=== PATIENT | female | born 1945 | race Caucasian/White ===

== ENCOUNTER 2017-11-08 04:00 | Emergency (ER) | payer MEDICARE, OTHER ==
[~2017-11-08] VITALS: Ht 165.1 cm; Wt 82.0 kg
[~2017-11-08 04:00] MED LIST: ASPI81 PO; ATOR10 PO; DIAZ2 PO; ESTR0.5T9 PO; NEXI20CA PO
[2017-11-08 04:04] VITALS: BP 208/94; PULSE 75; RESP 18; TEMP 97.7; O2SAT 100
[2017-11-08] MEDS ORDERED: PLAV75TA29 PO (04:18)
[2017-11-08] MEDS ORDERED: ESTR0.5T PO (04:18)
[2017-11-08] MEDS ORDERED: ALUMINUM/MAGNESIUM/SIMETH 30 ML CUP PO ONE (04:45)
[2017-11-08] MEDS ORDERED: PANTOPRAZOLE SODIUM 40 MG VIAL IV PUSH ONE (04:45)
[2017-11-08] MEDS ORDERED: ATROPINE/SCOPOLAM/HYOSCYAM/PB ELIXIR 10 ML CUP PO ONE (04:45)
--- NOTE | 2017-11-08 04:52 | PD ---
HPI Chief Complaint: Chest Pain Time Seen by Provider: 04:31 Travel History International Travel<30 days: No Contact w/Intl Traveler<30days: No Traveled to known affect area: No History of Present Illness HPI 72-year-old female complains of chest pain. Patient states that the pain started about 2 hours prior to arrival. Patient states the pain burning pain substernal pain without radiation. Patient denies palpitation nausea diaphoresis. Patient complained of shortness of breath with the pain. Patient states that the pain woke up from the sleep. Patient had similar episodes of chest pain a year ago. Patient was diagnosis with reflux. Patient denies any history of CAD. Patient has history of hypertension, hyperlipidemia. Patient denies history diabetes. Patient has history of DVT. Patient status post hysterectomy. On a scale of 1-10 the pain is a 10. PFSH Past Medical History High Cholesterol: Yes Deep Vein Thrombosis: Yes GERD: Yes Hypertension: Yes Tetanus Vaccination: < 5 Years Past Surgical History Hysterectomy: Yes (TOTAL IN 1996) Social History Alcohol Use: Yes (RARELY) Tobacco Use: No Substance Use: No Allergies-Medications (Allergen,Severity, Reaction): Coded Allergies: celecoxib (Unverified Allergy, Intermediate, ITCHING, 11/08/17) penicillin G (Unverified Allergy, Intermediate, ITCHING, 11/08/17) hydrocodone (Unverified Allergy, Mild, VOMITING, 11/08/17) Reported Meds & Prescriptions Reported Meds & Active Scripts Active Lomotil (Diphenoxylate-Atropine) 2.5-0.025 Mg Tab 1 Tab PO Q6H PRN Zofran Odt (Ondansetron Odt) 4 Mg Tab 4 Mg SL Q6HR PRN Reported Plavix (Clopidogrel Bisulfate) 75 Mg Tab 75 Mg PO DAILY Estradiol 0.5 Mg Tab 0.5 Mg PO DAILY Valium (Diazepam) 2 Mg Tab 0 Mg PO UNKNOWN DOSE Aspirin 81 Mg Tab 81 Mg PO DAILY Estrace (Estradiol) 0.5 Mg Tab 0 Mg PO UNKNOWN DOSE Nexium (Esomeprazole Magnesium) 20 Mg Cap 0 Mg PO UNKNOWN DOSE Lipitor (Atorvastatin Calcium) 10 Mg Tab 10 Mg PO DAILY Review of Systems General / Constitutional: No: Fever Eyes: No: Visual changes HENT: No: Headaches Cardiovascular: Positive: Chest Pain or Discomfort Respiratory: No: Shortness of Breath Gastrointestinal: No: Abdominal Pain Genitourinary: No: Dysuria Musculoskeletal: No: Pain Skin: No Rash Neurologic: No: Weakness Psychiatric: No: Depression Endocrine: No: Polydipsia Hematologic/Lymphatic: No: Easy Bruising Physical Exam Narrative GENERAL: Well-nourished, well-developed patient. SKIN: Focused skin assessment warm/dry. HEAD: Normocephalic. EYES: No scleral icterus. No injection or drainage. NECK: Supple, trachea midline. No JVD or lymphadenopathy. CARDIOVASCULAR: Regular rate and rhythm without murmurs, gallops, or rubs. RESPIRATORY: Breath sounds equal bilaterally. No accessory muscle use. GASTROINTESTINAL: Abdomen soft, non-tender, nondistended. MUSCULOSKELETAL: No cyanosis, or edema. BACK: Nontender without obvious deformity. No CVA tenderness. Neurologic exam normal. Data Data Last Documented VS Vital Signs Date Time Temp Pulse Resp B/P (MAP) Pulse Ox O2 Delivery O2 Flow Rate FiO2 11/08/17 04:04 97.7 75 18 208/94 (132) 100 Orders Orders Pantoprazole Inj (Protonix Inj) (11/08/17 04:45) Al-Mag Hy-Si 40-40-4 Mg/Ml Liq (Mag-Al P (11/08/17 04:45) Rphqi-Ylagta-Vxezfi-Pb Liq ( Liq (11/08/17 04:45) Electrocardiogram (11/08/17 04:36) Complete Blood Count With Diff (11/08/17 04:36) Comprehensive Metabolic Panel (11/08/17 04:36) Creatine Kinase (Cpk) (11/08/17 04:36) Troponin I (11/08/17 04:36) Prothrombin Time / Inr (Pt) (11/08/17 04:36) Act Partial Throm Time (Ptt) (11/08/17 04:36) Lipase (11/08/17 04:36) Chest, Single Ap (11/08/17 04:36) Iv Access Insert/Monitor (11/08/17 04:36) Ecg Monitoring (11/08/17 04:36) Oximetry (11/08/17 04:36) Metoclopramide Inj (Reglan Inj) (11/08/17 06:00) Diphenhydramine Inj (Benadryl Inj) (11/08/17 06:00) Sodium Chlorid 0.9% 500 Ml Inj (Ns 500 M (11/08/17 06:00) Labs Laboratory Tests Test 11/08/17 04:20 White Blood Count 7.1 TH/MM3 Red Blood Count 4.86 MIL/MM3 Hemoglobin 14.2 GM/DL Hematocrit 41.8 % Mean Corpuscular Volume 85.9 FL Mean Corpuscular Hemoglobin 29.2 PG Mean Corpuscular Hemoglobin Concent 34.0 % Red Cell Distribution Width 13.0 % Platelet Count 281 TH/MM3 Mean Platelet Volume 8.6 FL Neutrophils (%) (Auto) 68.7 % Lymphocytes (%) (Auto) 22.4 % Monocytes (%) (Auto) 7.2 % Eosinophils (%) (Auto) 0.9 % Basophils (%) (Auto) 0.8 % Neutrophils # (Auto) 4.8 TH/MM3 Lymphocytes # (Auto) 1.6 TH/MM3 Monocytes # (Auto) 0.5 TH/MM3 Eosinophils # (Auto) 0.1 TH/MM3 Basophils # (Auto) 0.1 TH/MM3 CBC Comment DIFF FINAL Differential Comment Prothrombin Time 9.7 SEC Prothromb Time International Ratio 1.0 RATIO Activated Partial Thromboplast Time 22.9 SEC Blood Urea Nitrogen 23 MG/DL Creatinine 1.13 MG/DL Random Glucose 98 MG/DL Total Protein 8.9 GM/DL Albumin 3.5 GM/DL Calcium Level 8.7 MG/DL Alkaline Phosphatase 85 U/L Aspartate Amino Transf (AST/SGOT) 43 U/L Alanine Aminotransferase (ALT/SGPT) 17 U/L Total Bilirubin 0.3 MG/DL Sodium Level 140 MEQ/L Potassium Level 4.7 MEQ/L Chloride Level 103 MEQ/L Carbon Dioxide Level 27.4 MEQ/L Anion Gap 10 MEQ/L Estimat Glomerular Filtration Rate 47 ML/MIN Total Creatine Kinase 94 U/L Troponin I LESS THAN 0.02 NG/ML Lipase 175 U/L MDM Medical Decision Making Medical Screen Exam Complete: Yes Emergency Medical Condition: Yes Interpretation(s) 5:39 AM. EKG shows sinus rhythm nonspecific ST-T wave change. CBC within normal limits. CMP with BUN at 23. Creatinine 1.13. GFR 47. Cardiac enzymes are normal. Differential Diagnosis Differential diagnosis including GERD, esophagitis, esophageal spasm, angina, TN , PE, pneumothorax. Narrative Course 72-year-old female with burning pain substernally. History of reflux. Protonix 40 mg IV. Maalox 30 cc p.o. 10 cc p.o. patient started having persistent nausea and intermittent diarrhea. Reglan 10 mg IV. Benadryl 25 mg IV. Lomotil 1 tablet p.o. given. Diagnosis Primary Impression: Gastroenteritis Additional Impressions: GERD (gastroesophageal reflux disease) Qualified Codes: K21.9 - Gastro-esophageal reflux disease without esophagitis Atypical chest pain Patient Instructions: General Instructions Additional Instructions: Clear fluid today and advance diet tomorrow. Take medication as needed for nausea vomiting diarrhea. Follow-up with personal physician. Return if persistent problem or worse. Med/Other Pt SpecificInfo: Prescription(s) given Scripts Diphenoxylate-Atropine (Lomotil) 2.5-0.025 Mg Tab 1 TAB PO Q6H Y for DIARRHEA, #10 TAB 0 Refills Prov: Alex Hawkins MD 11/08/17 Ondansetron Odt (Zofran Odt) 4 Mg Tab 4 MG SL Q6HR Y for Nausea/Vomiting, #10 TAB 0 Refills Prov: Alex Hawkins MD 11/08/17 Disposition: 01 DISCHARGE HOME Condition: Stable Alex Hawkins MD November 08, 2017 04:52
[2017-11-08 04:55] LABS: AUTOMATED NEUTROPHIL # 4.8 TH/MM3 (1.8-7.7); BASOPHIL # 0.1 TH/MM3 (0-0.2); BASOPHIL % 0.8 % (0.0-2.0); EOSINOPHIL # 0.1 TH/MM3 (0-0.4); EOSINOPHIL % 0.9 % (0.0-4.0); HEMATOCRIT 41.8 % (35.0-46.0); HEMOGLOBIN 14.2 GM/DL (11.6-15.3); LYMPH % 22.4 % (9.0-44.0); LYMPHOCYTE # 1.6 TH/MM3 (1.0-4.8); MEAN CELL VOLUME 85.9 FL (80.0-100.0); MEAN CORPUSCULAR HEMOGLOBIN 29.2 PG (27.0-34.0); MEAN PLATELET VOLUME 8.6 FL (7.0-11.0); MONO % 7.2 % (0.0-8.0); MONOCYTE # 0.5 TH/MM3 (0-0.9); NEUT % 68.7 % (16.0-70.0); PLATELET COUNT 281 TH/MM3 (150-450); RED BLOOD COUNT 4.86 MIL/MM3 (4.00-5.30); WHITE BLOOD COUNT 7.1 TH/MM3 (4.0-11.0)
[2017-11-08 05:12] LABS: PROTHROMBIN TIME - PATIENT 9.7 SEC (9.8-11.6)
[2017-11-08 05:17] LABS: ALBUMIN 3.5 GM/DL (3.4-5.0); ALKALINE PHOSPHATASE 85 U/L (45-117); ALT (GPT) 17 U/L (10-53); AST (GOT) 43 U/L (15-37); BICARBONATE 27.4 MEQ/L (21.0-32.0); BLOOD UREA NITROGEN 23 MG/DL (7-18); CALCIUM 8.7 MG/DL (8.5-10.1); CHLORIDE 103 MEQ/L (98-107); CREATININE 1.13 MG/DL (0.50-1.00); GLOMERULAR FILTRATION RATE 47 ML/MIN (>89); GLUCOSE,RANDOM 98 MG/DL (74-106); SODIUM (NA) 140 MEQ/L (136-145); TOTAL BILIRUBIN ADULT 0.3 MG/DL (0.2-1.0); TOTAL PROTEIN 8.9 GM/DL (6.4-8.2); TROPONIN I LESS THAN 0.02 NG/ML (0.02-0.05)
[2017-11-08] MEDS ORDERED: LOMO2.5T PO (05:52)
[2017-11-08] MEDS ORDERED: ZOFR4TAB3 SL (05:52)
[2017-11-08] MEDS ORDERED: METOCLOPRAMIDE HCL 10 MG/2 ML VIAL IV PUSH ONE (06:00)
[2017-11-08] MEDS ORDERED: SODIUM CHLORID 0.9% 500 ML INJ 500 ML IV ONE (06:00)
[2017-11-08] MEDS ORDERED: diphenhydrAMINE HCL 50 MG/ML VIAL IV PUSH ONE (06:00)
--- NOTE | 2017-11-08 06:20 | RADRPT ---
EXAM DATE/TIME: 11/08/2017 04:46 [facility] COMPARISON: No previous studies available for comparison. INDICATIONS : Shortness of breath. MEDICAL HISTORY : Hypertension. SURGICAL HISTORY : None. ENCOUNTER: Initial ACUITY: 1 day PAIN SCORE: 0/10 LOCATION: Bilateral chest FINDINGS: A single view of the chest demonstrates the lungs to be symmetrically aerated without evidence of mas s, infiltrate or effusion. Retrocardiac density may be hiatal hernia. Osseous structures are intact. CONCLUSION: Left paraspinal/retrocardiac density which may be hiatal hernia. Otherwise negative Christiano Amin MD on November 08, 2017 at 6:17 Board Certified Radiologist. This report was verified electronically.
[2017-11-08 06:27] VITALS: BP 143/63
--- NOTE | 2017-11-08 12:08 | EKG ---
Date Performed: 11/08/2017 Time Performed: 04:03:21 PTAGE: 72 years EKG: Sinus rhythm MINIMAL ST DEPRESSION BORDERLINE ECG NO PREVIOUS TRACING DOCTOR: Maurizio Monsalve Interpretating Date/Time 11/08/2017 12:06:34
== END 2017-11-08 06:43 | disposition home or self-care (01) ==
LOC: NEPE 04:00
DX: K52.9 Noninfective gastroenteritis and colitis, unspecified (principal); K21.9 Gastro-esophageal reflux disease without esophagitis; R07.89 Other chest pain; E78.00 Pure hypercholesterolemia, unspecified
CPT/HCPCS: 71045; 80053; 82550; 83690; 84484; 85025; 85610; 85730; 93005; 96361; 96374; 96375; 99285; C9113; J1200; J2765; J7040